=== PATIENT | female | born 1960 | race Caucasian/White ===

== ENCOUNTER → 2021-01-01 | Outpatient (CLI) | payer BC ==
--- NOTE | 2021-01-02 11:34 | MM ---
Reason for exam: screening (asymptomatic). Last mammogram was performed 1 year and 7 months ago. History: Patient is postmenopausal. Physical Findings: A clinical breast exam by your physician is recommended on an annual basis and results should be correlated with mammographic findings. MG 3D Screening Mammo W/Cad Bilateral CC and MLO view(s) were taken. Prior study comparison: June 10, 2019, mammogram, performed at [facility]. March 19, 2018, mammogram, performed at [facility]. The breast tissue is heterogeneously dense. This may lower the sensitivity of mammography. There is no discrete abnormality. ASSESSMENT: Negative, BI-RAD 1 RECOMMENDATION: Routine screening mammogram of both breasts in 1 year.
== END | disposition home or self-care (01) ==
LOC: RADMAMWWP 07:00
PROVIDERS: ATTEND Family Medicine
DX: Z12.31 Encounter for screening mammogram for malignant neoplasm of breast (principal); Z78.0 Asymptomatic menopausal state
CPT/HCPCS: 77063; 77067

== ENCOUNTER → 2022-03-17 | Outpatient (CLI) | payer BC ==
--- NOTE | 2022-03-18 20:10 | MM ---
Reason for Exam: Screening (asymptomatic). Last mammogram was performed 1 year(s) and 2 month(s) ago. Patient History: Menarche at age 16. First Full-Term at age 29. Postmenopausal. Estrogen and Progesterone, starting at age 57. Risk Values: Jazz 5 year model risk: 1.4%. NCI Lifetime model risk: 7.6%. Prior Study Comparison: 03/19/2018 Screening Mammogram, [facility]. 06/10/2019 Screening Mammogram, [facility]. 01/01/2021 Bilateral Screening Mammogram, [facility]. Tissue Density: The breast tissue is heterogeneously dense. This may lower the sensitivity of mammography. Findings: Analyzed By CAD. There is no suspicious group of microcalcifications or new suspicious mass in either breast. Overall Assessment: Negative, BI-RAD 1 Management: Screening Mammogram of both breasts in 1 year. 1. Patient should continue monthly self breast exams. 2. A clinical breast exam by your physician is recommended on an annual basis. 3. This exam should not preclude additional follow-up of suspicious palpable abnormalities. Electronically signed and approved by: Marsha Avalos M.D. Radiologist
== END | disposition home or self-care (01) ==
LOC: RADMAMWWP 08:34
PROVIDERS: ATTEND Family Medicine
DX: Z12.31 Encounter for screening mammogram for malignant neoplasm of breast (principal); Z78.0 Asymptomatic menopausal state
CPT/HCPCS: 77063; 77067

== ENCOUNTER → 2023-11-27 | Outpatient (CLI) | payer BC ==
--- NOTE | 2023-11-27 09:57 | MM ---
Reason for Exam: Additional evaluation requested from abnormal screening. Last screening mammogram was performed less than 1 month ago. Patient History: Menarche at age 16. First Full-Term at age 29. Postmenopausal. Estrogen and Progesterone, starting at age 57. Risk Values: Jazz 5 year model risk: 1.5%. NCI Lifetime model risk: 7.2%. Tissue Density: Right: The breasts are heterogeneously dense, which may obscure small masses. Findings: Analyzed By CAD. 6 mm nodular density 11:00 position right breast approximately 3 cm from the nipple. Ultrasound recommended. Overall Assessment: Incomplete: need additional imaging evaluation, BI-RAD 0 Management: Diagnostic Breast Ultrasound of the right breast. . Results were given to the patient verbally at the time of exam. Patient should continue monthly self-breast exams. A clinical breast exam by your physician is recommended on an annual basis. This exam should not preclude additional follow-up of suspicious palpable abnormalities. Note on Jazz scores and lifetime risk: 1. A Jazz score greater than 3% is considered moderate risk. If this is the case, consider specialist referral to assess eligibility for a risk reducing agent. 2. If overall lifetime risk for the development of breast cancer is 20% or higher, the patient may qualify for future screening with alternating mammogram and breast MRI. Electronically signed and approved by: Lino Moreno M.D. Radiologis
--- NOTE | 2023-11-27 09:59 | USB ---
Reason for Exam: Additional evaluation requested from abnormal screening. Patient History: Menarche at age 16. First Full-Term at age 29. Postmenopausal. Estrogen and Progesterone, starting at age 57. Risk Values: Jazz 5 year model risk: 1.5%. NCI Lifetime model risk: 7.2%. Technique: Method: Targeted. Prior Study Comparison: 01/01/2021 Bilateral Screening Mammogram, [facility]. 03/17/2022 Bilateral MG 3D screening mammo w/cad, [facility]. 11/23/2023 Bilateral MG 3D screening mammo w/cad, [facility]. Findings: The upper section of the breast of the right breast, the axilla of the right breast and the retroareolar of the right breast were scanned. Simple cyst at the right 11:00 position 3 cm from the nipple measuring 5 mm maximal dimension. No solid masses are present.. Overall Assessment: Benign, BI-RAD 2 Management: Screening Mammogram of both breasts in 1 year. A clinical breast exam by your physician is recommended on an annual basis and results should be correlated with mammographic findings. This exam should not preclude additional follow-up of suspicious palpable abnormalities. Results were given to the patient verbally at the time of exam. Electronically signed and approved by: Lino Moreno M.D. Radiologist [facility]
== END | disposition home or self-care (01) ==
LOC: RADMAMWWP 09:12
PROVIDERS: ATTEND Family Medicine
DX: R92.8 Other abnormal and inconclusive findings on diagnostic imaging of breast (principal); R92.331 Mammographic heterogeneous density, right breast; Z78.0 Asymptomatic menopausal state
CPT/HCPCS: 77061; 77065

== ENCOUNTER → 2024-02-18 | Outpatient (CLI) | payer BC ==
[2024-02-18 15:51] LABS: LDL Cholesterol,Calculated 217.7 mg/dL (0.0-131.0); Magnesium 2.1 mg/dL (1.5-2.4)
[2024-02-19 04:28] LABS: Apolipoprotein A1 219 mg/dL (125 - 215)
[2024-02-19 10:34] LABS: Zinc, Serum 80 ug/dL (60-130)
== END | disposition home or self-care (01) ==
LOC: LABWHC1 08:08
PROVIDERS: ATTEND Family Medicine
DX: E78.00 Pure hypercholesterolemia, unspecified (principal); E27.8 Other specified disorders of adrenal gland; Z79.890 Hormone replacement therapy; Z81.8 Family history of other mental and behavioral disorders
CPT/HCPCS: 36415; 80061; 82172; 82525; 82533; 82626; 82670; 83735; 84140; 84144; 84403; 84630

== ENCOUNTER 2025-01-18 07:31 | Observation (INO) | payer BC ==
--- NOTE | 2025-01-18 07:46 | ED ---
General Adult HPI - General Chief complaint: Chest Pain Stated complaint: Chest Pain Time Seen by Provider: 01/18/25 07:32 Source: patient, RN notes reviewed Mode of arrival: ambulatory Limitations: no limitations - History of Present Illness Initial comments: Patient is a 64-year-old female present to the emergency department with concerns with chest discomfort. Patient had chest discomfort 2 days ago, was doing well yesterday. Discomfort began again this morning. Discomfort is 3 out of 10 and feels like pressure or tightness. No associated dyspnea, nausea, or diaphoresis. Discomfort is fairly steady. Patient also has mild discomfort left upper back however wonders if that could be from the chiropractor. No calf pain. No history of similar symptoms previously. - Related Data Home Medications Medication Instructions Recorded Confirmed Brain And Memory Boost 1 cap PO DAILY 01/18/25 01/18/25 Co Q-10(Unknown Dose) 1 cap PO DAILY 01/18/25 01/18/25 Curcumin(Unknown Dose) 1 tab PO DAILY 01/18/25 01/18/25 Dim(Unknown Dose) 1 cap PO DAILY 01/18/25 01/18/25 Magnesium(Unknown Dose) 1 tab PO DAILY 01/18/25 01/18/25 Melatonin 1.5 mg PO HS 01/18/25 01/18/25 Pregnenolone 100mg 1 cap PO DAILY 01/18/25 01/18/25 Progesterone, Micronized 100 mg PO DIRECTED 01/18/25 01/18/25 [Progesterone] Progesterone, Micronized 200 mg PO DIRECTED 01/18/25 01/18/25 [Progesterone] Sereni Pro 1 cap PO DAILY 01/18/25 01/18/25 Vitamin B Complex 1 cap PO DAILY 01/18/25 01/18/25 Vitamin D3/Vitamin K2 (Mk4) 1 cap PO DAILY 01/18/25 01/18/25 [Vitamin K2 Plus D3 Tablet] estradioL [Lyllana 0.025 mg Patch] 1 patch TRANSDERM TUSA 01/18/25 01/18/25 Allergies Allergy/AdvReac Type Severity Reaction Status Date / Time No Known Allergies Allergy Verified 01/18/25 08:55 Review of Systems ROS Statement: Those systems with pertinent positive or pertinent negative responses have been documented in the HPI. ROS Other: All systems not noted in ROS Statement are negative. Constitutional: Denies: fever Eyes: Denies: eye pain ENT: Denies: ear pain Respiratory: Denies: cough, dyspnea Cardiovascular: Reports: as per HPI, chest pain Endocrine: Denies: fatigue Gastrointestinal: Denies: abdominal pain Past Medical History Past Medical History: No Reported History History of Any Multi-Drug Resistant Organisms: None Reported Past Surgical History: Section Past Psychological History: No Psychological Hx Reported Past Alcohol Use History: Rare Past Drug Use History: None Reported General Exam Limitations: no limitations General appearance: alert, in no apparent distress Head exam: Present: normocephalic Eye exam: Present: normal appearance Respiratory exam: Present: normal lung sounds bilaterally. Absent: chest wall tenderness Cardiovascular Exam: Present: regular rate, normal rhythm, normal heart sounds Expanded Peripheral pulses: 2+: Radial (R), Radial (L), Dorsalis Pedis (R), Dorsalis Pedis (L) GI/Abdominal exam: Present: soft. Absent: tenderness Extremities exam: Present: normal inspection. Absent: pedal edema, calf tenderness Neurological exam: Present: alert Psychiatric exam: Present: normal affect, normal mood Skin exam: Present: normal color Course Vital Signs 01/18/25 01/18/25 07:33 09:01 Temperature 97.9 F Pulse Rate 84 75 Respiratory 16 18 Rate Blood Pressure 119/79 109/76 O2 Sat by Pulse 100 99 Oximetry EKG Findings - EKG Results: EKG: interpreted by THERESA, sinus rhythm, normal axis, normal QRS, normal ST/T Medical Decision Making - Medical Decision Making Was pt. sent in by a medical professional or institution (, PA, COMMERCIAL FISHING VESSEL OPERATOR, urgent care, hospital, or [facility]...) When possible be specific @ -No Did you speak to anyone other than the patient for history (EMS, parent, family, police, friend...)? What history was obtained from this source @ - is present helps provide history including onset of patient's symptoms Did you review nursing and triage notes (agree or disagree)? Why? @ -I reviewed and agree with nursing and triage notes Were old charts reviewed (outside hosp., previous admission, EMS record, old EKG, old radiological studies, urgent care reports/EKG's, [facility] records)? Report findings @ -No old charts were reviewed Differential Diagnosis (chest pain, altered mental status, abdominal pain women, abdominal pain men, vaginal bleeding, weakness, fever, dyspnea, syncope, headache, dizziness, GI bleed, back pain, seizure, CVA, palpatations, mental health, musculoskeletal)? @ -Differential Chest Pain: Stable Angina, Unstable Angina, STEMI, NSTEMI Aortic Dissection, Pneumothorax, Musculoskeletal, Esophageal Spasm GERD, Cholecystitis, Pancreatitis, Zoster, this is not meant to be an all-inclusive list. EKG interpreted by me (3pts min.). @ -As above X-rays interpreted by me (1pt min.). @ -Chest x-ray shows no acute process CT interpreted by me (1pt min.). @ -None done U/S interpreted by me (1pt. min.). @ -None done What testing was considered but not performed or refused? (CT, X-rays, U/S, labs)? Why? @ -None What meds were considered but not given or refused? Why? @ -None Did you discuss the management of the patient with other professionals (professionals i.e. , PA, COMMERCIAL FISHING VESSEL OPERATOR, lab, RT, psych nurse, social service manager, motorcycle sales associate, teacher, environmental officer, trimming caser)? Give summary @ -Case was discussed with Dr. Smith who will admit covering Dr. Kaminski Was smoking cessation discussed for >3mins.? @ -No Was critical care preformed (if so, how long)? @ -No Were there social determinants of health that impacted care today? How? (Homele ssness, low income, unemployed, alcoholism, drug addiction, transportation, low edu. Level, literacy, decrease access to med. care, [facility], rehab)? @ -No Was there de-escalation of care discussed even if they declined (Discuss DNR or withdrawal of care, Hospice)? DNR status @ -No What co-morbidities impacted this encounter? (DM, HTN, Smoking, COPD, CAD, Cancer, CVA, ARF, Chemo, Hep., AIDS, mental health diagnosis, sleep apnea, morbid obesity)? @ -None Was patient admitted / discharged? Hospital course, mention meds given and route, prescriptions, significant lab abnormalities, going to OR and other pertinent info. @ -Patient presents with chest discomfort. Initial evaluation unremarkable. Patient will be admitted with cardiac consult. Admission orders written. Patient reevaluated and updated. Undiagnosed new problem with uncertain prognosis? @ -No Drug Therapy requiring intensive monitoring for toxicity (Heparin, Nitro, Insulin, Cardizem)? @ -No Were any procedures done? @ -No Diagnosis/symptom? @ -Chest pain Acute, or Chronic, or Acute on Chronic? @ -Acute Uncomplicated (without systemic symptoms) or Complicated (systemic symptoms)? @ -Default Side effects of treatment? @ -No Exacerbation, Progression, or Severe Exacerbation? @ -No Poses a threat to life or bodily function? How? (Chest pain, [place], VA, pneumonia, PE, COPD, DKA, ARF, appy, cholecystitis, CVA, Diverticulitis, Homicidal, Suicidal, threat to staff... and all critical care pts) @ -Threat to cardiac function - Lab Data Result diagrams: 01/18/25 07:47 01/18/25 07:47 Lab Results 01/18/25 01/18/25 01/18/25 Range/Units 07:47 07:47 07:47 WBC 3.45 L (4.50-10.00) 10*3/uL RBC 4.37 (4.10-5.20) 10*6/uL Hgb 13.6 (12.0-15.0) g/dL Hct 39.7 (37.2-46.3) % MCV 90.8 (80.0-97.0) fL MCH 31.1 (27.0-32.0) pg MCHC 34.3 (32.0-37.0) g/dL Plt Count 235 (140-440) 10*3/uL MPV 9.2 L (9.5-12.2) fL Immature Gran % (Auto) 0 % Neutrophils % 42.6 % Lymphocytes % 42.6 % Monocytes % 11.0 % Eosinophils % 2.9 % Basophils % 0.9 % Immature Gran # 0.00 (0.00-0.04) 10*3/uL Neutrophils # 1.47 L (1.80-7.70) 10*3/uL Lymphocytes # 1.47 (0.90-5.00) 10*3/uL Monocytes # 0.38 (0.20-1.00) 10*3/uL Eosinophils # 0.10 (0.04-0.35) 10*3/uL Basophils # 0.03 (0.00-0.10) 10*3/uL PT 10.3 (10.0-12.5) sec INR 0.9 (<1.2) APTT 23.0 (22.0-30.0) sec D-Dimer 0.32 (<0.60) mg/L FEU Sodium 139 (137-145) mmol/L Potassium 3.8 (3.5-5.1) mmol/L Chloride 106 (98-107) mmol/L Carbon Dioxide 26 (22-30) mmol/L Anion Gap 7 mmol/L BUN 17 (7-17) mg/dL Creatinine 0.81 (0.52-1.04) mg/dL Est GFR (CKD-EPI)AfAm >90 (>60 ml/min/1.73 sqM) Est GFR (CKD-EPI)NonAf 79 (>60 ml/min/1.73 sqM) Glucose 98 (74-99) mg/dL Calcium 9.8 (8.4-10.2) mg/dL Magnesium 2.0 (1.6-2.3) mg/dL Total Bilirubin 0.9 (0.2-1.3) mg/dL AST 24 (14-36) U/L ALT 21 (4-34) U/L Alkaline Phosphatase 58 (38-126) U/L Troponin I (0.000-0.034) ng/mL Total Protein 6.9 (6.3-8.2) g/dL Albumin 4.4 (3.5-5.0) g/dL Amylase 49 (30-110) U/L Lipase 93 (23-300) U/L 04/30/25 Range/Units 07:47 WBC (4.50-10.00) 10*3/uL RBC (4.10-5.20) 10*6/uL Hgb (12.0-15.0) g/dL Hct (37.2-46.3) % MCV (80.0-97.0) fL MCH (27.0-32.0) pg MCHC (32.0-37.0) g/dL Plt Count (140-440) 10*3/uL MPV (9.5-12.2) fL Immature Gran % (Auto) % Neutrophils % % Lymphocytes % % Monocytes % % Eosinophils % % Basophils % % Immature Gran # (0.00-0.04) 10*3/uL Neutrophils # (1.80-7.70) 10*3/uL Lymphocytes # (0.90-5.00) 10*3/uL Monocytes # (0.20-1.00) 10*3/uL Eosinophils # (0.04-0.35) 10*3/uL Basophils # (0.00-0.10) 10*3/uL PT (10.0-12.5) sec INR (<1.2) APTT (22.0-30.0) sec D-Dimer (<0.60) mg/L FEU Sodium (137-145) mmol/L Potassium (3.5-5.1) mmol/L Chloride (98-107) mmol/L Carbon Dioxide (22-30) mmol/L Anion Gap mmol/L BUN (7-17) mg/dL Creatinine (0.52-1.04) mg/dL Est GFR (CKD-EPI)AfAm (>60 ml/min/1.73 sqM) Est GFR (CKD-EPI)NonAf (>60 ml/min/1.73 sqM) Glucose (74-99) mg/dL Calcium (8.4-10.2) mg/dL Magnesium (1.6-2.3) mg/dL Total Bilirubin (0.2-1.3) mg/dL AST (14-36) U/L ALT (4-34) U/L Alkaline Phosphatase (38-126) U/L Troponin I <0.012 (0.000-0.034) ng/mL Total Protein (6.3-8.2) g/dL Albumin (3.5-5.0) g/dL Amylase (30-110) U/L Lipase (23-300) U/L Disposition Clinical Impression: Chest pain Disposition: ADMITTED IP TO THIS HOSP Is patient prescribed a controlled substance at d/c from ED?: No Referrals: Briana Plaza DO [Primary Care Provider] - 1-2 days Time of Disposition: 09:13
[2025-01-18] MEDS: ASPIRIN 81 MG PO STA (07:52)
[2025-01-18] MEDS: NITROGLYCERIN OINT 1 INCH/GM PACKET TOPICAL STA (07:53)
[2025-01-18 07:56] LABS: Basophils # (A) 0.03 10*3/uL (0.00-0.10); Basophils % (A) 0.9 %; Eosinophils % (A) 2.9 %; HCT 39.7 % (37.2-46.3); HGB 13.6 g/dL (12.0-15.0); Lymphocytes # (A) 1.47 10*3/uL (0.90-5.00); Lymphocytes % (A) 42.6 %; MCH 31.1 pg (27.0-32.0); MCHC 34.3 g/dL (32.0-37.0); MCV 90.8 fL (80.0-97.0); Mean Platelet Volume 9.2 fL (9.5-12.2); Monocytes # (A) 0.38 10*3/uL (0.20-1.00); Neutrophils # (A) 1.47 10*3/uL (1.80-7.70); Neutrophils % (A) 42.6 %; Platelet Count 235 10*3/uL (140-440); RBC 4.37 10*6/uL (4.10-5.20); RDW 11.4 % (11.5-14.5); WBC 3.45 10*3/uL (4.50-10.00)
[2025-01-18 08:12] LABS: ALT 21 U/L (4-34); AST 24 U/L (14-36); African American GFR (CKD) >90 (>60 ml/min/1.73 sqM); Albumin 4.4 g/dL (3.5-5.0); Alkaline Phosphatase 58 U/L (38-126); Amylase 49 U/L (30-110); Anion Gap 7 mmol/L; Blood Urea Nitrogen 17 mg/dL (7-17); Calcium 9.8 mg/dL (8.4-10.2); Carbon Dioxide 26 mmol/L (22-30); Chloride 106 mmol/L (98-107); Glucose 98 mg/dL (74-99); Lipase 93 U/L (23-300); Non-African American GFR(CKD) 79 (>60 ml/min/1.73 sqM); Potassium 3.8 mmol/L (3.5-5.1); Sodium 139 mmol/L (137-145); Total Bilirubin 0.9 mg/dL (0.2-1.3); Total Protein 6.9 g/dL (6.3-8.2)
--- NOTE | 2025-01-18 08:32 | XR ---
EXAMINATION TYPE: XR chest 2V DATE OF EXAM: 01/18/2025 8:11 AM COMPARISON: None. CLINICAL INDICATION: Female, 64 years old with history of Chest Pain: Shortness of breath TECHNIQUE: XR chest 2V views of the chest are obtained. FINDINGS: Scattered senescent parenchymal changes noted. Hyperinflation compatible with COPD. No evidence for infiltrate. No evidence for atelectasis. Heart size is stable. Mediastinal structures are stable and grossly unremarkable. No evidence for hilar prominence. Degenerative changes dorsal spine. IMPRESSION: 1. No evidence for acute pulmonary disease. [facility], , 01/18/2025 8:30 AM
[2025-01-18 08:46] LABS: INR 0.9 (<1.2); Prothrombin Time 10.3 sec (10.0-12.5)
[2025-01-18] MEDS ORDERED: NITROGLYCERIN SL TABS 0.4 MG TAB SUBLINGUAL PRN (09:13)
[2025-01-18] MEDS: NITROGLYCERIN OINT 1 INCH/GM PACKET TOPICAL SCH (11:02)
--- NOTE | 2025-01-18 13:07 | P.CRDCN ---
History of Present Illness Consult date: 01/18/25 Consult reason: chest pain History of present illness: This is a 64-year-old female patient with no previous cardiac history and does not follow with a room service clerk. She has a past medical history of osteoporosis. We have been asked to evaluate the patient for chest pain. Patient states that on Thursday she was feeling chest squeezing or tightness and then a soreness. She states she has had some achiness all over which she thought was related to Evenity which she recently started for her osteoporosis. However, she read side effects could be a heart attack and she decided that she needed to be evaluated. Regarding chest pain, she had none yesterday but it recurred again today. At this time, it is just a nagging pain. She was given Nitropaste but does not think this made the pain better but caused some lightheadedness feeling. She does complain of her joints being sore and a generalized pain. She also complains of her left arm having numbness and tingling but this is gone away. Denies shortness of breath. Blood pressure 113/82, heart rate 82, pulse ox 98% on room air. Patient is seen today in the emergency center waiting for a bed on the observation unit. -EKG: Sinus rhythm with no acute ST-T wave changes. -Chest x-ray: No acute process. -Laboratory studies: Troponin negative x 2. WBC 3.4 otherwise CBC unremarkable. D-dimer 0.32. CMP normal. -Home cardiac medications: None Review Of Systems: At the time of my exam: CONSTITUTIONAL: Denies fever or chills. HEENT: Denies blurred vision, vision changes, or eye pain. Denies hemoptysis CARDIOVASCULAR: Denies chest pain. Denies orthopnea. Denies PND. Denies p alpitations RESPIRATORY: Denies shortness of breath. GASTROINTESTINAL: Denies abdominal pain. Denies nausea or vomiting. HEMATOLOGIC: Denies bleeding disorders. GENITOURINARY: Denies any blood in urine. SKIN: Denies puritis. Denies rash. Physical examination: Gen: This is 64-year-old female in no acute distress. VS: reviewed HEENT: Head is atraumatic, normocephalic. Pupils equal, round. Sclerae is anicteric. NECK: Supple. No JVD. LUNGS: Clear to auscultation. No wheezes or rhonchi. No intercostal retractions. HEART: Regular rate and rhythm. No murmur. ABDOMEN: Soft No tenderness. EXTREMITIES: No pedal edema. No calf tenderness. NEUROLOGICAL: Patient is awake, alert and oriented x3. Assessment: Atypical chest pain, acute coronary syndrome ruled out History of osteoporosis Plan: Schedule patient for stress echocardiogram today If stress test is unremarkable, patient is cleared for discharge from cardiology. Thank you kindly for this consultation. Nurse practitioner note has been reviewed, I agree with documented findings and plan of care. Patient was seen and examined. Past Medical History Past Medical History: No Reported History History of Any Multi-Drug Resistant Organisms: None Reported Past Surgical History: Section Past Psychological History: No Psychological Hx Reported Past Alcohol Use History: Rare Past Drug Use History: None Reported Medications and Allergies Home Medications Medication Instructions Recorded Confirmed Type Brain And Memory Boost 1 cap PO DAILY 01/18/25 01/18/25 History Co Q-10(Unknown Dose) 1 cap PO DAILY 01/18/25 01/18/25 History Curcumin(Unknown Dose) 1 tab PO DAILY 01/18/25 01/18/25 History Dim(Unknown Dose) 1 cap PO DAILY 01/18/25 01/18/25 History Magnesium(Unknown Dose) 1 tab PO DAILY 01/18/25 01/18/25 History Melatonin 1.5 mg PO HS 01/18/25 01/18/25 History Pregnenolone 100mg 1 cap PO DAILY 01/18/25 01/18/25 History Progesterone, Micronized 100 mg PO DAILY 01/18/25 01/18/25 History [Progesterone] Progesterone, Micronized 200 mg PO HS 01/18/25 01/18/25 History [Progesterone] Sereni Pro 1 cap PO DAILY 01/18/25 01/18/25 History Vitamin B Complex 1 cap PO DAILY 01/18/25 01/18/25 History Vitamin D3/Vitamin K2 (Mk4) 1 cap PO DAILY 01/18/25 01/18/25 History [Vitamin K2 Plus D3 Tablet] estradioL [Lyllana 0.025 mg Patch] 1 patch TRANSDERM TUSA 01/18/25 01/18/25 History Allergies Allergy/AdvReac Type Severity Reaction Status Date / Time No Known Allergies Allergy Verified 01/18/25 08:55 Physical Exam Vitals: Vital Signs Temp Pulse Resp BP Pulse Ox 01/18/25 11:01 76 18 95/68 99 01/18/25 09:01 75 18 109/76 99 01/18/25 07:33 97.9 F 84 16 119/79 100 Intake and Output 01/17/25 01/18/25 01/18/25 22:59 06:59 14:59 Other: Weight 49.442 kg Results 01/18/25 07:47 01/18/25 07:47 Cardiac Enzymes 01/18/25 01/18/25 01/18/25 Range/Units 07:47 07:47 10:29 AST 24 (14-36) U/L Troponin I <0.012 <0.012 (0.000-0.034) ng/mL Coagulation 01/18/25 Range/Units 07:47 PT 10.3 (10.0-12.5) sec APTT 23.0 (22.0-30.0) sec CBC 01/18/25 Range/Units 07:47 WBC 3.45 L (4.50-10.00) 10*3/uL RBC 4.37 (4.10-5.20) 10*6/uL Hgb 13.6 (12.0-15.0) g/dL Hct 39.7 (37.2-46.3) % Plt Count 235 (140-440) 10*3/uL Comprehensive Metabolic Panel 01/18/25 Range/Units 07:47 Sodium 139 (137-145) mmol/L Potassium 3.8 (3.5-5.1) mmol/L Chloride 106 (98-107) mmol/L Carbon Dioxide 26 (22-30) mmol/L BUN 17 (7-17) mg/dL Creatinine 0.81 (0.52-1.04) mg/dL Glucose 98 (74-99) mg/dL Calcium 9.8 (8.4-10.2) mg/dL AST 24 (14-36) U/L ALT 21 (4-34) U/L Alkaline Phosphatase 58 (38-126) U/L Total Protein 6.9 (6.3-8.2) g/dL Albumin 4.4 (3.5-5.0) g/dL Current Medications Generic Name Dose Route Start Last Admin Trade Name Freq PRN Reason Stop Dose Admin Aspirin 325 mg 01/19/25 09:00 Aspirin 325 Mg Tab PO DAILY BALWINDER Nitroglycerin 0.4 mg 01/18/25 09:13 Nitroglycerin Sl Tabs 0.4 Mg Tab SUBLINGUAL Q5M PRN Chest Pain Nitroglycerin 0.5 inch 01/18/25 12:00 01/18/25 11:02 Nitroglycerin Oint 1 Inch/Gm Packet TOPICAL Not Given Q6HR BALWINDER Intake and Output 01/17/25 01/18/25 01/18/25 22:59 06:59 14:59 Other: Weight 49.442 kg Patient Weight 01/19/25 06:59 Weight 49.442 kg 01/18/25 07:47 01/18/25 07:47
--- NOTE | 2025-01-18 16:44 | CA ---
Stress Echo Report Martin Olvera Age: 64 Gender: F : 1960 Exam Date: 01/18/2025 12:52 Exam Location: [facility] Ht (in): 62 Wt (lb): 109 Ordering Physician: Tatiana Montenegro Referring Physician: Moni STONE Executive Coach: Rosendo Muir Technologist Procedure CPT: Indication: Chest Pain ICD-9 Codes: Rhythm: Patient History: Cardiac Medications: see chart Medications in past 24 hours: Contrast: N/A Stress Results Protocol: Regan Total dose(mL): NA Exercise Duration (min:sec): 10:[address] Depression (mm): Angina Score: Ham Score: METS: 11.7 Resting HR: 80 Resting BP: 102 / 69 Peak HR: 162 Peak BP: 144 / 58 Max Predicted HR: 158 103 % Max Predicted HR Target HR: 134 Double Product: [id number] Stress Summary: BP Response: Reason for Termination: Reached target heart rate or work-load Cardiac Symptoms: no symptoms ECG Analysis Resting ECG: Stress ECG: Arrhythmia: Echo Analysis Resting Echo: Peak Echo Analysis: MEASUREMENTS (Male/Female) Normal Values CONCLUSIONS Patient underwent exercise stress echo with a Regan protocol treadmill stress test. Patient exercised into Stage 3 for a total of 10 minutes and 18 seconds reaching a total of 11.7 METS. Patient's maximum heart rate was 162 which represented 102% age-predicted maximum heart rate. Stress EKG portion: At baseline patient's EKG showed normal sinus rhythm, normal axis, no significant ST or T wave abnormalities. At peak exercise, EKG showed no change from baseline. Stress echo portion: 2-D echocardiogram was performed in the parasternal long, personal short, apical 2 and apical four-chamber views at rest, peak exercise and in recovery. At baseline, echocardiogram showed left ventricular ejection fraction 55% without wall motion abnormalities. With peak exercise, echocardiogram shows improvement in left ventricular ejection fraction, increase contractility, decrease in left ventricular end systolic dimension without wall motion abnormalities consistent with a normal response to exercise. Conclusions: 1. Normal EKG and echo response to exercise without evidence of inducible ischemia. 2. Good exercise capacity. Dr. Jin Jolley DO (Electronically Signed) Final Date: 18 January 2025 16:43
[2025-01-18 20:47] VITALS: BP 122/72; PULSE 66; RESP 17; TEMP 98.3
[2025-01-19] MEDS ORDERED: ASPIRIN 325 MG TAB PO SCH (09:00)
== END 2025-01-18 20:07 | disposition home or self-care (01) ==
LOC: EC 07:31 → 6NMEDSUR 09:13 → 1SOBS 11:51
PROVIDERS: ADMIT Internal Medicine; ATTEND Internal Medicine
DX: R07.89 Other chest pain (principal); M81.0 Age-related osteoporosis without current pathological fracture
CPT/HCPCS: 99285; 36415; 93005; 93351; 85379; 80053; 82150; 83690; 83735; 84484; 85025; 85610; 85730; 71046; G0378 ×2